=== PATIENT | male | born 1975 | race Caucasian/White ===

== ENCOUNTER 2018-02-06 09:16 | Emergency (ER) | payer SELFPAY ==
[2018-02-06] MEDS ORDERED: HOMATROPINE HBR 5% OPH SOLN 5 ML OS ONE (09:38)
[2018-02-06] MEDS ORDERED: TETRACAINE HCL 0.5% OPH SOLN 4 ML OS ONE (09:40)
--- NOTE | 2018-02-06 09:44 | ER Document Report ---
ED Eye Complaint - General Mode of Arrival: Ambulatory Information source: Patient TRAVEL OUTSIDE OF THE [place] IN LAST 30 DAYS: No - General Chief Complaint: Eye Injury Stated Complaint: LEFT EYE INJURY Time Seen by Provider: 02/06/18 09:33 Notes: 42-year-old male who presents to the emergency department today with complaints of left eye pain. Patient states he was working around wood that had a bungee cord around it and the bungee cord released, flying back and hitting him in the left eye. Patient indicates there is a "black box" just lateral and inferior to the center that obstructs his vision. Patient is able to see out of his left eye other than that small area. Patient complaints of photophobia in the left eye. Patient has lower eyelid swelling on the left. (JING CH) - Related Data Allergies/Adverse Reactions: tetracycline Allergy (Verified 02/06/18 09:17) Past Medical History - General Information source: Patient, [facility] Records - Social History Smoking Status: Current Every Day Smoker Cigarette use (# per day): No - juul e-cig Frequency of alcohol use: None Drug Abuse: None Lives with: Family Family History: Reviewed & Not Pertinent Endocrine Medical History: Reports: Hx Diabetes Mellitus Type 2 Surgical Hx: Negative Review of Systems - Review of Systems Constitutional: No symptoms reported EENT: See HPI, Eye pain - left, bungee cord hit in eye Cardiovascular: No symptoms reported Respiratory: No symptoms reported Gastrointestinal: No symptoms reported Genitourinary: No symptoms reported Male Genitourinary: No symptoms reported Musculoskeletal: No symptoms reported Skin: No symptoms reported Hematologic/Lymphatic: No symptoms reported Neurological/Psychological: No symptoms reported -: Yes All other systems reviewed and negative Physical Exam - Notes Notes: Physical Exam: General: Alert, appears well. HEENT: Normocephalic. See eye exam. Extraocular movements intact. Oropharynx clear. Neck: Supple. Non-tender. Respiratory: No respiratory distress. Clear and equal breath sounds bilaterally. Cardiovascular: Regular rate and rhythm. Abdominal: Normal Inspection. Non-tender. No distension. Normal Bowel Sounds. Back: Non-tender. No deformity or step off. Extremities: Moves all four extremities. Upper extremities: Normal inspection. Normal ROM. Lower extremities: Normal inspection. No edema. Normal ROM. Neurological: Normal cognition. AAOx4. Normal speech. Psychological: Normal affect. Normal Mood. Skin: Warm. Dry. Normal color. (JING CH) Course - Re-evaluation Re-evalutation: 02/06/18 09:58 The bungee cord struck the patient in the left lateral lower lid and the eyeball inspection shows conjunctival injury in the lower lateral quadrant of the eyeball. The patient reports the black box sensation is a very small area that is actually almost exactly in the middle of the field of vision, but he has normal vision around the black box sensation in the surrounding visual field of vision. The patient reports a sharp stabbing sensation in the back of the eyeball when he lays back flat. LEFT EYE EXAM: The lower lid is a little edematous. The most tender area to palpate is the inferior lateral aspect of the globe palpating through the lower eyelid. There is no hyphema seen in the anterior chamber Tetracaine drops were placed in the left eye and most of the pain went away. He was able to lay back flat without feeling the sharp stabbing pain in the back of his eyeball after the tetracaine. Fluorescein stain was applied, there was no uptake over the cornea, there was only uptake in the inferior lateral region corresponding to where the bungee cord struck the eye. The fluoroscein was irrigated out of the eye using normal saline. The pupil is a little sluggishly reactive, a little irregular, and does not constrict down quite as well as the right pupil. Funduscopic exam does not show any obvious retinal injury. 02/06/18 10:42 We do not have ophthalmology coverage for our emergency room locally, so phone call was made to [facility] for their meteorological observer program production specialist to discuss the case. The transfer center was called at 10:11 AM. 02/06/18 11:01 I discussed the case with the meteorological observer on-call for [facility], she feels that he probably does not need to be seen urgently and as long as nothing changes in his exam and his vision over the next several hours, he can safely be seen by ophthalmology tomorrow here in [place]. (AMY SÁNCHEZ) Discharge - Discharge Clinical Impression: Contusion of left eyeball Qualifiers: Encounter type: initial encounter Qualified Code(s): S05.12XA - Contusion of eyeball and orbital tissues, left eye, initial encounter Condition: Stable Disposition: HOME, SELF-CARE Additional Instructions: Use the ketorolac eyedrops that were dispensed to treat your eye today. Put 1 drop in the left eye every 4 hours. Stay indoors away from bright lights and wind. Ice packs to the left eye may help reduce some of the discomfort and swelling. Follow-up with one of the ophthalmologists listed, or with a local test hole driller tomorrow morning. Return to the emergency room if there is any significant change in your vision or any other symptoms. RETURN TO THE EMERGENCY ROOM IF ANY NEW OR WORSENING SYMPTOMS. Referrals: GORDON RIVAS DO [ACTIVE STAFF] - Follow up tomorrow [facility]ICE [facility] [Provider Group] - Follow up tomorrow Scribe Attestation: 02/06/18 10:50 I personally performed the services described in the documentation, reviewed and edited the documentation which was dictated to the scribe in my presence, and it accurately records my words and actions. (AMY SÁNCHEZ) Scribe Documentation - Scribe Written by Roselyn:: Roselyn Vinson, 02/06/2018 0945 acting as scribe for :: Kathy
[2018-02-06] MEDS ORDERED: KETOROLAC TROMETHAMINE 0.45% 4 DROP/0.4 ML DROPERETTE OS ONE (11:19)
[2018-02-06 11:30] VITALS: BP 122/83
== END 2018-02-06 11:33 | disposition home or self-care (01) ==
LOC: ER 09:16
DX: S05.12XA Contusion of eyeball and orbital tissues, left eye, initial encounter (principal); W20.8XXA Other cause of strike by thrown, projected or falling object, initial encounter; F17.290 Nicotine dependence, other tobacco product, uncomplicated; E11.9 Type 2 diabetes mellitus without complications
CPT/HCPCS: 99283; J3490 ×2

== ENCOUNTER 2019-03-13 14:45 | Emergency (ER) | payer SELFPAY ==
[2019-03-13 15:28] VITALS: BP 149/90
[2019-03-13] MEDS ORDERED: PENICILLIN G BENZATHINE 1.2 MILLION UNIT/2 ML DISP.SYRIN IM ONE (15:30)
[2019-03-13] MEDS ORDERED: DEXAMETHASONE 4 MG TABLET PO ONE (15:31)
--- NOTE | 2019-03-13 15:34 | ER Document Report ---
HPI - HPI Time Seen by Provider: 03/13/19 15:17 Pain Level: 3 Notes: Patient is a 43-year-old male presenting to the emergency department with fever, chills and sore throat. Patient denies any nausea, vomiting, diarrhea. Patient reports symptoms started this morning. His presents with him with similar symptoms. He does report a remote history of strep throat. He states he is able to swallow without difficulty however he does have pain with swallowing. - CONSTITUTIONAL Constitutional: REPORTS: Fever, Chills - EENT EENT: REPORTS: Sore Throat - REPRODUCTIVE Reproductive: DENIES: : Past Medical History - General Information source: Patient - Social History Smoking Status: Never Smoker Frequency of alcohol use: None Drug Abuse: None Family History: Reviewed & Not Pertinent Patient has suicidal ideation: No Patient has homicidal ideation: No Endocrine Medical History: Reports: Hx Diabetes Mellitus Type 2 Renal/ Medical History: Denies: Hx Peritoneal Dialysis Surgical Hx: Negative - Immunizations Immunizations up to date: Yes Vertical Provider Document - CONSTITUTIONAL Notes: PHYSICAL EXAMINATION: GENERAL: Well-appearing, well-nourished and in no acute distress. HEAD: Atraumatic, normocephalic. EYES: Pupils equal round extraocular movements intact, conjunctiva are normal. ENT: Nares patent, oropharynx erythematous, bilateral tonsillar swelling with exudates noted, uvula midline, no evidence of peritonsillar abscess. NECK: Normal range of motion, mild bilateral cervical lymphadenopathy. LUNGS: No respiratory distress, lung sounds clear and equal bilaterally. Musculoskeletal: Normal range of motion NEUROLOGICAL: Normal speech, normal gait. PSYCH: Normal mood, normal affect. SKIN: Warm, Dry, normal turgor, no rashes or lesions noted. - INFECTION CONTROL TRAVEL OUTSIDE OF THE [place] IN LAST 30 DAYS: No Course - Re-evaluation Re-evalutation: Rapid strep is positive, patient treated with Decadron and IM penicillin here in the emergency department. He was tachycardic on arrival, this has improved during his stay in the emergency department. Patient stable for discharge at this time. He was given strict ED return precautions and he verbalized understanding and agreement with same. The patient's emergency department workup and current diagnosis were explained to the patient and or family. Follow-up instructions were provided. Medications if prescribed were discussed. Instructions for when to return to the emergency department including specific worrisome symptoms were discussed with the patient and/or family. - Vital Signs Vital signs: Temp Pulse Resp BP Pulse Ox 97.7 F 131 H 17 149/90 H 99 03/13/19 14:50 03/13/19 14:50 03/13/19 14:50 03/13/19 14:50 03/13/19 14:50 Discharge - Discharge Clinical Impression: Strep pharyngitis Condition: Stable Disposition: HOME, SELF-CARE Additional Instructions: STREP THROAT: Your sore throat is due to the streptococcus germ (strep throat). Strep throat usually makes you feel quite ill with fever and aches, headache, swollen sore throat, and tender bumps under the angles of the jaw. Strep throat requires antibiotic treatment. Although the sore throat may go away by itself, complications such as rheumatic fever, kidney disease, or throat abscess can occur. We usually prescribe antibiotics by mouth. Be sure to take the medicine until it's gone. If you stop early, the strep may come back. If you are vomiting, are severely ill, or can't remember to take pills, we can give you an antibiotic shot. Take acetaminophen or ibuprofen for pain and fever. Sip frequent clear liquids, or use popsicles or ice chips. Anesthetic sprays or lozenges may help. Make sure the air in the room is not too dry. Avoid using decongestants or antihistamines. Call the doctor if there is no improvement in three days, or if you have difficulty breathing, increasing throat pain, high fever, rash, or frequent vomiting. STEROID MEDICATION: You have been given a medicine of the cortisone/steroid class. This medication is used to control inflammation or allergy. It is usually only given for a short period of time, until the acute process subsides. There are usually no side effects from short-term use of cortisone-like medications. Some persons feel an increased sense of well-being and are not sleepy at bedtime. Long-term use of cortisone medications is best avoided, unless required for a severe condition. If your condition does not remit, or relapses after the course of corticosteroid medication, you should consult your physician. FOLLOW-UP CARE: If you have been referred to a physician for follow-up care, call the physicians office for an appointment as you were instructed or within the next two days. If you experience worsening or a significant change in your symptoms, notify the physician immediately or return to the Emergency Department at any time for re-evaluation. Your strep test was positive. You were given a dose of penicillin and Decadron here in the emergency department. Push fluids. Plenty of rest. Tylenol or ibuprofen for pain or fever. Follow-up with primary care provider if not improving over the next 2 to 3 days.
[2019-03-13 15:36] LABS: A TYPE INFLUENZA AG NEGATIVE (NEGATIVE); B INFLUENZA AG NEGATIVE (NEGATIVE)
== END 2019-03-13 16:15 | disposition home or self-care (01) ==
LOC: ER 14:45
DX: J02.0 Streptococcal pharyngitis (principal); R50.9 Fever, unspecified; E11.9 Type 2 diabetes mellitus without complications
CPT/HCPCS: 99282; 96372; 87880; 87804; J8540; J0561

== ENCOUNTER 2020-02-13 17:59 | Emergency (ER) | payer SELFPAY ==
--- NOTE | 2020-02-13 19:50 | ER Document Report ---
ED Medical Screen (RME) - General Chief Complaint: Cough Stated Complaint: COUGH,CONGESTION Time Seen by Provider: 02/13/20 19:48 Mode of Arrival: Ambulatory Information source: Patient Notes: 44-year-old male presented to ED for cough congestion fever x2 weeks. He states the last fever was about a week ago. He states he has not lost a sense of smell or taste. He states he has been coughing so much that now his chest is sore and he has had a productive cough the whole time. He states now he gets dizzy from coughing. He is diabetic type II. He states his A1c is about 8. He states he is a former smoker does not drink or use any illicit drugs. I have greeted and performed a rapid initial assessment of this patient. A comprehensive ED assessment and evaluation of the patient, analysis of test results and completion of medical decision making process will be conducted by an additional ED providers. TRAVEL OUTSIDE OF THE [place] IN LAST 30 DAYS: No - Related Data Allergies/Adverse Reactions: tetracycline Allergy (Verified 02/06/18 09:17) Past Medical History Endocrine Medical History: Reports: Hx Diabetes Mellitus Type 2 Renal/ Medical History: Denies: Hx Peritoneal Dialysis - Immunizations Immunizations up to date: Yes Physical Exam - Vital signs Vitals: Temp Pulse Resp BP Pulse Ox 98.5 F 96 16 118/76 99 02/13/20 18:48 02/13/20 18:48 02/13/20 18:48 02/13/20 18:48 02/13/20 18:48 Course - Vital Signs Vital signs: Temp Pulse Resp BP Pulse Ox 98.5 F 96 16 118/76 99 02/13/20 18:48 02/13/20 18:48 02/13/20 18:48 02/13/20 18:48 02/13/20 18:48
--- NOTE | 2020-02-13 20:46 | RADIOLOGY REPORT (SQ) ---
CLINICAL INDICATION: Cough congestive productive cough was having fever. TECHNIQUE: A single portable AP view was obtained of the chest at 2020 hours. COMPARISON: None. FINDINGS: The cardiomediastinal silhouette is normal. The lungs demonstrate presumed chronic interstitial change. Streaky changes at the bases, unknown chronicity.. No evidence of effusion or pneumothorax. The visualized bones are unremarkable. IMPRESSION: Streaky airspace disease at the lung bases left greater than right on a background of chronic interstitial change. There is bibasilar airspace disease is of unknown chronicity.
[2020-02-14 00:45] LABS: ABSOLUTE BASOPHILS # (AUTO) 0.1 10^3/uL (0.0-0.2); ABSOLUTE EOSINOPHILS # (AUTO) 0.2 10^3/uL (0.0-0.6); ABSOLUTE LYMPHOCYTES (AUTO) 1.9 10^3/uL (0.5-4.7); ABSOLUTE MONOCYTES (AUTO) 0.7 10^3/uL (0.1-1.4); ABSOLUTE NEUT (AUTO) 2.4 10^3/uL (1.7-8.2); BASOPHILS % (AUTO) 1.1 % (0-2); EOSINOPHILS % (AUTO) 3.6 % (0-6); HEMATOCRIT 40.7 % (37.9-51.0); HEMOGLOBIN 14.7 g/dL (13.5-17.0); LYMPHOCYTES % (AUTO) 35.7 % (13-45); MEAN CORPUSCULAR HEMOGLOBIN 32.7 pg (27.0-33.4); MEAN CORPUSCULAR HGB CONC 36.1 g/dL (32.0-36.0); MEAN CORPUSCULAR VOLUME 91 fl (80-97); MONOCYTES % (AUTO) 13.4 % (3-13); PLATELET COUNT 329 10^3/uL (150-450); RED BLOOD COUNT 4.49 10^6/uL (4.35-5.55); RED CELL DISTRIBUTION WIDTH 12.9 % (11.5-14.0); SEGMENTED NEUTROPHILS % (AUTO) 46.2 % (42-78); TOTAL CELLS COUNTED % (AUTO) 100 %; WHITE BLOOD COUNT 5.3 10^3/uL (4.0-10.5)
[2020-02-14 01:02] LABS: ALBUMIN 4.4 g/dL (3.5-5.0); ALKALINE PHOSPHATASE 106 U/L (38-126); ANION GAP 8 (5-19); ASPARTATE AMINO TRANSFERASE 21 U/L (17-59); BILIRUBIN,DIRECT 0.3 mg/dL (0.0-0.4); BILIRUBIN,TOTAL 0.6 mg/dL (0.2-1.3); BLOOD UREA NITROGEN 23 mg/dL (7-20); CALCIUM 9.5 mg/dL (8.4-10.2); CARBON DIOXIDE 27 mmol/L (22-30); CHLORIDE 104 mmol/L (98-107); GLUCOSE 204 mg/dL (75-110); POTASSIUM 4.1 mmol/L (3.6-5.0); TOTAL PROTEIN 7.2 g/dL (6.3-8.2)
[2020-02-14] MEDS ORDERED: AMOXICILLIN TR/POT CLAVULANATE 875-125 MG TAB PO ONE (01:04)
--- NOTE | 2020-02-14 01:13 | ER Document Report ---
Entered by JING CH SCRIBE 02/14/20 0108 Acting as scribe for:NOEL PARIKH DO ED Respiratory Problem - General Chief Complaint: Productive Cough Stated Complaint: COUGH,CONGESTION Time Seen by Provider: 02/13/20 19:48 Mode of Arrival: Ambulatory Information source: Patient Notes: This 44 year old male patient presents to the emergency department today with complaints of a cough for the last two weeks. Patient has been bringing up green/yellow sputum with this cough. Patient's boss at work has had similar symptoms but he has not had any known COVID-19 exposure to his knowledge. He denies any recent travel, shortness of breath, or chest pain. TRAVEL OUTSIDE OF THE [place] IN LAST 30 DAYS: No - Related Data Allergies/Adverse Reactions: tetracycline Allergy (Verified 02/06/18 09:17) Home Medications: novalin-n Past Medical History - General Information source: Patient - Social History Smoking Status: Former Smoker Cigarette use (# per day): No Frequency of alcohol use: None Drug Abuse: None Lives with: Family Family History: Reviewed & Not Pertinent Endocrine Medical History: Reports: Hx Diabetes Mellitus Type 2 Surgical Hx: Negative - Immunizations Immunizations up to date: Yes Review of Systems - Review of Systems Constitutional: No symptoms reported EENT: No symptoms reported Cardiovascular: denies: Chest pain Respiratory: See HPI, Cough. denies: Short of breath Gastrointestinal: No symptoms reported Genitourinary: No symptoms reported Male Genitourinary: No symptoms reported Musculoskeletal: No symptoms reported Skin: No symptoms reported Hematologic/Lymphatic: No symptoms reported Neurological/Psychological: No symptoms reported -: Yes All other systems reviewed and negative Physical Exam - Vital signs Vitals: Temp Pulse Resp BP Pulse Ox 98.5 F 96 16 118/76 99 02/13/20 18:48 02/13/20 18:48 02/13/20 18:48 02/13/20 18:48 02/13/20 18:48 - Notes Notes: Physical Exam: General: Alert, appears well. HEENT: Normocephalic. Atraumatic. PERRL. Extraocular movements intact. Oropharynx clear. Neck: Supple. Non-tender. Respiratory: No respiratory distress. Faint bibasilar expiratory wheezing. Cardiovascular: Regular rate and rhythm. Abdominal: Normal Inspection. Non-tender. No distension. Normal Bowel Sounds. Back: No gross abnormalities. Extremities: Moves all four extremities. Upper extremities: Normal inspection. Normal ROM. Lower extremities: Normal inspection. No edema. Normal ROM. Neurological: Normal cognition. AAOx4. Normal speech. Psychological: Normal affect. Normal Mood. Skin: Warm. Dry. Normal color. Course - Re-evaluation Re-evalutation: 02/14/20 01:31 MDM 44 year old male with dm has cough and xray consistent with cap. Left > Right basilar infiltrate. No sob and no chest pain and no covid exposure. Boss had covid test due to similar symptoms recently and was negative. Fever when this started about 2 weeks ago. No recent fever. He is nontoxic here. We discussed self isolation and taking medicine as directed. He expressed understanding. 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 Take the antibiotic until gone. No work for the next 2 days. Please return here for chest pain, shortness of breath or other problems or concerns. No work 02/13 or 02/14 Prescriptions: Albuterol Sulfate [Albuterol Sulfate Hfa] 6.7 gm IH TID #1 [email or web address] Amoxicillin/Potassium Clav [Augmentin 875-125 Tablet] 1 tab PO BID #20 tab Forms: Return to Work I personally performed the services described in the documentation, reviewed and edited the documentation which was dictated to the scribe in my presence, and it accurately records my words and actions.
[2020-02-14 01:33] VITALS: BP 141/91
== END 2020-02-14 02:39 | disposition home or self-care (01) ==
LOC: ER 17:59
DX: J18.9 Pneumonia, unspecified organism (principal); E11.69 Type 2 diabetes mellitus with other specified complication; R68.89 Other general symptoms and signs
CPT/HCPCS: 99283; 36415; 85025; 80053; 71045; J3490